=== PATIENT | female | born 1970 | race Caucasian/White ===

== ENCOUNTER 2023-05-19 09:16 | Emergency (ER) | payer SELFPAY ==
[2023-05-19] VITALS (11 sets, daily range): BP systolic 105–144; BP diastolic 76–119
[2023-05-19 10:07] LABS: BASO% 0.9 % (0-3); EOS% 10.7 % (0-8); HEMATOCRIT 47.5 % (37.0-47.0); HEMOGLOBIN 15.9 g/dl (12.0-16.0); IMMATURE GRANULOCYTES 0.1 % (0.0-5.0); MEAN CELL VOLUME 94.2 fL CALC (80.0-100.0); MEAN CORPUSCULAR HGB 31.5 pG CALC (26.0-32.0); MEAN CORPUSCULAR HGB CONC 33.5 g/dL CAL (32.0-36.0); MONO% 5.7 % (2-13); NEUT# 3.21 thou/uL (2.00-7.15); NEUT% 45.6 % (42-76); RED BLOOD COUNT 5.04 mill/uL (4.20-5.60); RED CELL DISTRI WIDTH 12.3 % (11.5-15.5)
[2023-05-19 10:19] LABS: URINE BILIRUBIN - DIPSTICK Negative (NEGATIVE); URINE BLOOD DIPSTICK Negative (NEGATIVE); URINE GLUCOSE - DIPSTICK Negative (NEGATIVE); URINE KETONE Negative (NEGATIVE); URINE LEUK ESTERASE Negative (NEGATIVE); URINE NITRITE - DIPSTICK Negative (Negative); URINE PH 5.5 (4.5-8.0); URINE PROTEIN - DIPSTICK Negative (NEG-TRACE); URINE SPECIFIC GRAVITY 1.015; URINE UROBILINOGEN - DIPSTICK 0.2 E.U./dL (0.2)
[2023-05-19 10:19] LABS: ALBUMIN 4.8 g/dL (3.2-5.0); ALKALINE PHOSPHATASE 92 u/l (38-126); ANION GAP 14 (6-22 (CALC)); BILIRUBIN, TOTAL 0.5 mg/dL (0.02-1.3); BUN 17 mg/dL (7-17); BUN/CREATININE RATIO 28 (12-20 (CALC)); CARBON DIOXIDE 26 mmol/l (22-30); CHLORIDE 103 mmol/l (95-108); CREATININE 0.6 mg/dL (0.5-1.0); GFR FOR AFR.AMER. > 60 ML/MIN (>=60 (CALC)); GFR OTHER RACES > 60 ML/MIN (>=60 (CALC)); SGOT/AST 32 u/l (14-36); SODIUM 138 mmol/l (137-146); TOTAL PROTEIN 8.1 g/dL (6.3-8.2)
[2023-05-19 10:21] LABS: URINE COLOR Yellow
[2023-05-19] MEDS ORDERED: BUDESONID2 IN (13:13)
[2023-05-19] MEDS ORDERED: PREDNISONE20 MG PO (13:13)
[2023-05-19] MEDS ORDERED: IPRATROPIU0.5 MG/3 M IN (13:13)
== END 2023-05-19 13:42 | disposition home or self-care (01) | DRG 192 ==
LOC: ED 09:16
PROVIDERS: Emergency Medicine
DX: J44.1 Chronic obstructive pulmonary disease with (acute) exacerbation (principal); F17.210 Nicotine dependence, cigarettes, uncomplicated

== ENCOUNTER → 2024-06-28 | Emergency (ER) | payer OTHER ==
[~2024-06-28] MED LIST: BUDESONID2 IN; IPRATROPIU0.5 MG/3 M IN; PREDNISONE20 MG PO; PREDNISONE50 MG PO; ZPAK PO; methylPREDNISolone SODIUM SUCC 125 MG/2 ML SDV IM ONE
[2024-06-28 19:15] VITALS: BP 139/96
== END | disposition left against medical advice (07) | DRG 192 ==
LOC: ED 17:40 → AMA 17:50
DX: J44.1 Chronic obstructive pulmonary disease with (acute) exacerbation (principal); Z53.29 Procedure and treatment not carried out because of patient's decision for other reasons